=== PATIENT | female | born 1970 | race Native Hawaiian/Other Pacific Islander ===

== ENCOUNTER 2018-02-03 10:16 | Emergency (ER) | payer OTHER ==
[~2018-02-03] VITALS: Ht 167.6 cm; Wt 59.0 kg
== END 2018-02-03 13:04 | disposition home or self-care (01) ==
LOC: ED 10:16
DX: M24.445 Recurrent dislocation, left finger (principal)
CPT/HCPCS: 99282

== ENCOUNTER 2019-10-24 08:41 | Outpatient (CLI) | payer OTHER | END 2019-10-24 19:38 | disposition home or self-care (01) | LOC: RESP 08:41 | DX: R06.02 Shortness of breath (principal) ==

== ENCOUNTER 2020-12-27 10:34 | Outpatient (CLI) | payer OTHER | END 2020-12-27 19:23 | disposition home or self-care (01) | LOC: RAD 10:34 | PROVIDERS: ATTEND Internal Medicine Sleep Medicine | DX: J18.9 Pneumonia, unspecified organism (principal) ==

== ENCOUNTER 2021-02-28 10:15 | Outpatient (CLI) | payer OTHER | END 2021-02-28 19:31 | disposition home or self-care (01) | LOC: MAMMO 10:15 | PROVIDERS: ATTEND Registered Nurse | DX: Z12.31 Encounter for screening mammogram for malignant neoplasm of breast (principal) ==

== ENCOUNTER 2023-02-21 08:30 | Outpatient (CLI) | payer OTHER | END 2023-02-21 19:08 | disposition home or self-care (01) | LOC: RAD 08:30 | PROVIDERS: ATTEND Physician Assistant | DX: M54.59 Other low back pain (principal) ==

== ENCOUNTER 2023-03-22 14:43 | Outpatient (CLI) | payer OTHER | END 2023-03-22 20:57 | disposition home or self-care (01) | LOC: MRI 14:43 | PROVIDERS: ATTEND Physician Assistant | DX: M54.17 Radiculopathy, lumbosacral region (principal) ==

== ENCOUNTER 2023-04-17 09:44 | Outpatient (CLI) | payer OTHER | END 2023-04-17 19:03 | disposition home or self-care (01) | LOC: MAMMO 09:44 | PROVIDERS: ATTEND Nurse Practitioner Family | DX: Z12.31 Encounter for screening mammogram for malignant neoplasm of breast (principal) ==